=== PATIENT | female | born 1975 | race Caucasian/White ===

== ENCOUNTER → 2021-09-09 15:54 | Outpatient (CLI) | payer OTHER, SELFPAY | PROVIDERS: Visit Provider Nurse Practitioner | DX: U07.1 COVID-19 (principal) | CPT/HCPCS: C9803; U0003; U0005 ==

== ENCOUNTER 2025-05-19 10:11 | Outpatient (CLI) | payer BC, SELFPAY ==
--- NOTE | 2025-05-19 10:13 | MM_ITS ---
PROCEDURE INFORMATION: Exam: Bilateral Screening 3D Mammography Exam date and time: 05/19/2025 10:19 AM Age: 50 years old Clinical indication: Baseline. Paternal aunt had breast cancer. TECHNIQUE: Imaging protocol: Bilateral Screening tomosynthesis and 2D mammography including computer-aided detection (CAD) when performed. COMPARISON: No relevant prior studies available. FINDINGS: MAMMOGRAPHY: Breast composition: There are scattered areas of fibroglandular density. Mass: None. Architectural distortion: None. Calcifications: No suspicious calcifications. Asymmetric density: None. Skin thickening: None. Axillary adenopathy: None. Skin artifact from powder or deodorant in the left axilla. IMPRESSION: No mammographic evidence of malignancy. Annual screening is recommended unless otherwise clinically indicated. ASSESSMENT: BI-RADS Category 2: Benign.
--- OUTSIDE RECORDS SUMMARY | 2025-05-19 10:17 | XMS_ITS | Clinical Summary ---
[facility] [address] [place] [address] Care Team Providers Care Chairman President And Chief Executive Officer Name Role Phone Clarisa Harvey Primary Care Provider [phone] Allergies Active Allergy Reactions Criticality Noted Date Comments Fexofenadine Other (See Comments) Low 01/24/2016 Headaches & epistaxis Latex Rash Low 01/24/2016 Medications Alpha-Lipoic Acid 600 MG capsuleIndicatio ns:Numbness and tingling of left leg,Neuropathy Take 1 tablet by mouth 3 times a day. 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 Migraine 01/18/2016 Vitamin D deficiency 01/18/2016 Immunizations Immunization Administration Dates Next Due Hepatitis A 09/15/2018 Family History Medical History Relation Name Comments Emphysema Father No Known Problems Mother Relation Name Status Comments Father Alive Mother Alive Social History Tobacco Use Types Packs/Day Years Used Date Smoking Tobacco: Never Smokeless Tobacco: Never Alcohol Use Standard Drinks/Week Comments No 0 (1 standard drink = 0.6 oz pur e alcohol) PHQ-2 Answer Date Recorded Retired PHQ-9: Brief Depression Severity Measure Score 0 04/04/2022 Abuse Screen Answer Date Recorded Unsafe at Home or Work/School Not on file Feels Threatened by Someone? Not on file 05/2023 Does Anyone Keep You from Co ntacting Others or Doint Things Outside the Home? Not on file 06/02/2023 Physical Sign of Abuse Present Not on file 1 Housing Stability Answer Date Recorded Current Living Arrangements Not on file 05/24 Potentially Unsafe Housing Conditions Not on pillo e 06/02/2023 Family and Community Support Answer Rony e Recorded Help with Day-to-Day Activities Not on file 06/02/2023 Lonely or Isolated Not on file 06/02/2023 Employment Answer Date Recorded Do you want help finding or keeping work or a slade b? Not on file 06/02/2023 Disabilities Answer Date Recorded Concentrating, Remembering, or Making Decisions Difficulty Not on file 06/02/2023 Doing Errands Independently Difficulty Not on fi le 06/02/2023 Education Answer Date Recorded Help with school or training? Not on file Preferred Language Not on file 06/02/2023 PHQ-2 Answer Date Recorded Retired PHQ-9: Brief Depression Severity Measure Score 0 03/08/2024 Comments No Sex and Gender Information Value Date Recorded Sex Assigned at Not on file Legal Sex Female 11:53 AM EDT Gender Identity Not on file Sexual Orientation Not on file Occupation Industry Job Start Date Job End Date Not on file Not on file Not on file Not on file Last Filed Vital Signs Vital Sign Reading Time Taken Comments Blood Pressure 102/64 03/08/2024 11:02 AM EDT Pulse 97 03/08/2024 11:02 AM EDT Temperature 36.7 C (98.1 F) 03/08/2024 11:02 AM EDT Respiratory Rate 14 03/08/2024 11:02 AM EDT Oxygen Saturation 98% 03/08/2024 11:02 AM EDT Inhaled Oxygen Concentration - - Weight 78.7 kg (173 lb 6.4 oz) 03/08/2024 11:02 AM EDT Height 157.5 cm (5' 2 ) 03/08/2024 11:02 AM EDT Body Mass Index 31.72 03/08/2024 11:02 AM EDT Plan of Treatment Health Maintenance Due Date Last Done Comments Annual Gynecologic Pelvic an d Breast Exam 1976 TDAP/TD VACCINES (1 - Tdap) 1995 ANNUAL PHYSICAL 01/24/2016 MAMMOGRAM 2016 COLOGUARD 2021 COLON CANCER SCREENING 5 YEA R SIGMOIDOSCOPY 2021 COLONOSCOPY 2021 [address] CANCER SCREENING 2021 CT COLONOGRAPHY 2021 FECAL OCCULT BLOOD TEST 2021 FIT Testing (1 year) 2021 INFLUENZA VACCINE 03/24/2025 HEPATITIS C SCREENING Completed 09/10/2018 Pneumococcal Vaccine 0-49 Aged Out No longer eligible based on patient's age to complete this topic Procedures Procedure Name Priority Date/Time Associated Diagnosis Comments HEPATITIS PANEL, ACUTE Routine 09/10/2018 11:42 AM EST Screen for STD (sexually transmitted disease) from Last 3 Months or Most Recently Relevant to Health Maintenance Results * Hepatitis panel, acute (09/10/2018 11:42 AM EST) Hep A IgM Negative Negative [facility] Hepatitis B Surface Ag Negative Negative [facility] Hep B Core IgM Negative Negative [facility] Hep C Virus Ab 0.5 0.0 - 0.9 s/co ratio [facility] Comment: Negative: < 0.8 Indeterminate: 0.8 - 0.9 Positive: > 0.9 The CDC recommends that a positive HCV antibody result be followed up with a HCV Nucleic Acid Amplification test (009147). Blood 09/10/2018 11:4 2 AM EST 09/10/2018 Narrative [facility]) - 09/13/2018 8:08 PM EST Performed at: 02 - [address] [id number] [place] Hand: Radames De Santiago PhD, Phone: [phone] Patient Fasting: Y us Clarisa Harvey DO LAB BLOOD ORDERABLES Final Result [facility] [address] [place] [address], [place] [phone] [facility] [address] [place] [address], [place] [phone] from Last 3 Months or Most Recently Relevant to Health Maintenance [place] [address] [employer] PPO Care Teams Chairman President And Chief Executive Officer Relationship Specialty Start Date End Date Clarisa Harvey DO [address] [place] [address] PCP - General Family Medicine 02/17/19
--- OUTSIDE RECORDS SUMMARY | 2025-05-19 10:17 | XMS_ITS | Encounter Summary ---
[facility] [address] [place] [address] Care Team Providers Care Rn Digestive Name Role Phone Clarisa Harvey DO Primary Care Provider [phone] Reason for Visit * Reason Comments Med Refill Encounter Details Date Type Department Care Team (Late st Contact Info) Description 04/19/2021 Refill [facility] FAMILY [facility] [address] [facility] [place] [address] Clarisa Harvey DO [address] [place] [address] Strain of lumbar region, initial encounter Social History Tobacco Use Types Packs/Day Years Used Date Smoking Tobacco: Never Smokeless Tobacco: Never Alcohol Use Standard Drinks/Week Comments No 0 (1 standard drink = 0.6 oz pur e alcohol) Comments No Sex and Gender Information Value Date Recorded Sex Assigned at Not on file Legal Sex Female 11:53 AM EDT Gender Identity Not on file Sexual Orientation Not on file Occupation Industry Job Start Date Job End Date Not on file Not on file Not on file Not on file documented as of this encounter Plan of Treatment Not on file documented as of this encounter Visit Diagnoses Diagnosis Strain of lumbar region, initial encounter documented in this encounter Care Teams Rn Digestive Relationship Specialty Start Date End Date Clarisa Harvey DO [address] [place] [address] PCP - General Family Medicine 02/17/19 documented as of this encounter
== END 2025-05-19 23:59 | disposition home or self-care (01) ==
LOC: RAD 10:11
PROVIDERS: PCP Nurse Practitioner Family; Visit Provider Nurse Practitioner Family
DX: Z12.31 Encounter for screening mammogram for malignant neoplasm of breast (principal); R92.323 Mammographic fibroglandular density, bilateral breasts; Z80.3 Family history of malignant neoplasm of breast
CPT/HCPCS: 77063; 77067